=== PATIENT | male | born 1945 | race Two or more races ===

== ENCOUNTER 2021-05-28 19:55 | Inpatient (IN) | payer MEDICARE ==
[~2021-05-28] VITALS: Ht 175.3 cm; Wt 61.7 kg
--- NOTE | 2021-05-28 20:13 | NUR ---
[id number]. GEN WEAKNESS & LOW O2 SAT 85% ON RA. COVID POSITIVE X 2 WEEKS. PT A/OX3. ON O2 3LPM VIA N/C; SATTING AT 97%; TOLERATING WELL. CONNECTED PT TO POX AND MONITOR.
[2021-05-28] MEDS ORDERED: DEXAMETHASONE SOD PHOSPHATE 6 MG in IV D5W 50 ML IV ONE (20:30)
[2021-05-28] MEDS ORDERED: DEXAMETHASONE SOD PHOSPHATE 10 MG/ML VIAL ONE (20:35)
--- NOTE | 2021-05-28 20:37 | NUR ---
PHLEBOTOMY MANAGER AT PT'S BEDSIDE
[2021-05-28 20:49] LABS: BASOPHILS % (AUTO) 0.5 % (0.0-2.0); EOSINOPHILS % (AUTO) 0.1 % (0.0-6.0); HEMATOCRIT 39 % (39-51); HEMOGLOBIN 13.1 g/dL (13.5-17.5); LYMPHOCYTES # (AUTO) 0.4 K/uL (0.8-4.8); LYMPHOCYTES % (AUTO) 8.2 % (20.0-44.0); MEAN CORPUSCULAR HGB CONC 33 g/dl (31.0-36.0); MEAN CORPUSCULAR VOLUME 88 fL (80-96); MONOCYTES # (AUTO) 0.4 K/uL (0.1-1.30); NEUTROPHILS # (AUTO) 3.9 K/uL (1.8-8.9); NEUTROPHILS % (AUTO) 82.2 % (43.0-81.0); PLATELET COUNT (AUTO) 152 K/uL (150-450); RED BLOOD CELL COUNT(AUTO) 4.49 MIL/uL (4.5-6.0); WHITE BLOOD COUNT (AUTO) 4.8 K/uL (4.3-11.0)
[2021-05-28] MEDS ORDERED: AZITHROMYCIN 500 MG in IV D5W 250 ML IV ONE (21:00)
[2021-05-28] MEDS ORDERED: CEFTRIAXONE 1GM BAG (ER ONLY) 1 GM/50 ML PIGGYBACK IV ONE (21:00)
[2021-05-28 21:03] LABS: CARBON DIOXIDE 26 mmol/L (21-32); CHLORIDE 103 mmol/L (98-107); GLUCOSE 102 mg/dL (74-106); POTASSIUM 4.5 mmol/L (3.5-5.1); SODIUM SERUM 134 mmol/L (136-145); UREA NITROGEN, BLOOD 22 mg/dL (7-18)
[2021-05-28 21:06] LABS: CREATINE KINASE, TOTAL 39 U/L (39-308); D-DIMER 1.48 mg/L(FEU (0.17-0.50)
[2021-05-28 21:13] LABS: C-REACTIVE PROTEIN 22.9 mg/dL (0.0-0.9)
[2021-05-28 21:15] LABS: ALANINE AMINOTRANSFERASE 21 U/L (12-78); ALBUMIN 2.2 g/dL (3.4-5.0); ALKALINE PHOSPHATASE 58 U/L (46-116); ASPARTATE AMINOTRANSFERASE 29 U/L (15-37); BILIRUBIN,TOTAL 0.5 mg/dL (0.2-1.0); TOTAL PROTEIN, SERUM 5.8 g/dL (6.4-8.2)
--- NOTE | 2021-05-28 21:33 | NUR ---
[facility] HOSPITALIST ON PHONE WITH MARTY KOHLER
[2021-05-28] MEDS ORDERED: CEFTRIAXONE 1GM BAG (ER ONLY) 50 ML IV ONE (21:44)
[2021-05-28] MEDS ORDERED: AZITHROMYCIN 500 MG VIAL ONE (21:44)
--- NOTE | 2021-05-28 21:45 | NUR ---
PT TAKEN TO CT VIA [facility]
[2021-05-28] MEDS ORDERED: IV NS 0.9% 1,000 ML IV PRN (22:00)
[2021-05-28] MEDS ORDERED: MORPHINE SULFATE INJ 2 MG/ML DISP.SYRIN IV PRN (22:00)
[2021-05-28] MEDS ORDERED: LABETALOL 20 MG/4 ML VIAL IV PRN (22:00)
[2021-05-28] MEDS ORDERED: ONDANSETRON HCL/PF 4 MG/2 ML VIAL IVP PRN (22:00)
[2021-05-28] MEDS ORDERED: ACETAMINOPHEN 325 MG TABLET PO PRN (22:00)
--- NOTE | 2021-05-28 22:12 | NUR ---
COVID ANTIGEN AND PCR SWAB COLLECTED AND SENT TO LAB RT AT PT'S BEDSIDE FOR ABG
--- NOTE | 2021-05-28 22:29 | NUR ---
PT SEEN BY CURT KOHLER
--- NOTE | 2021-05-28 22:30 | NUR ---
ABG RESULT REPORTED TO CURT KOHLER WITH NO NEW ORDERS
[2021-05-28 22:57] LABS: ABG BASE EXCESS -1.6 mmol/L; ABG PCO2 29.3 mmHg (35.0-45.0); ABG PH 7.473 (7.350-7.450); ABG PO2 74.9 mmHg (75.0-100.0); COHb 0.3 % (0.5-1.5); MetHb 0.3 % (0.0-1.5); O2Hb 94.7 % (94.0-97.0); SITE, ABG Right Radial; VENT MODE, BG 3L NC 32%
--- NOTE | 2021-05-28 23:18 | NUR ---
REPORT GIVEN TO JASMINE VERGARA FOR RICK
[2021-05-28 23:42] LABS: THYROID STIMULATING HORMONE 1.366 uIU/mL (0.358-3.74)
[2021-05-29] MEDS ORDERED: CEFEPIME 2 GM in IV D5W 100 ML IV ONE ×2
--- NOTE | 2021-05-29 00:55 | NUR ---
MRSA SWAB COLLECTED VIA NARE AND SENT TO LAB
--- NOTE | 2021-05-29 00:58 | NUR ---
PT TRANSFERRING TO [facility]-2 VIA ACLS PROTOCOL. VSS. ALL BELONGINGS WITH PT.
[2021-05-29 01:00] VITALS: BP 119/80
[2021-05-29] MEDS ORDERED: CEFEPIME 1 GM VIAL ONE (02:52)
[2021-05-29] MEDS: ENOXAPARIN SODIUM 40 MG/0.4 ML DISP.SYRIN SQ SCH ×2 (02:53→20:17)
--- NOTE | 2021-05-29 03:00 | NUR ---
Patient arrived to unit at 0100. A&Ox1-2, forgets where he is but then remembers. However, pt. is oriented to self and can remember nurse's name. Anxious upon arrival d/t new environment/ not fully understanding care (tele monitor, documenting skin issues) but stable. Initial VS 119/80, O2 sat 94%, HR 63, temp 97.5, RR 19. Patient pupils ewual and reactive to light. Can move extremities evenly. Has swollen area to R jaw and R eye, pt. PMH includes non-hodgkins lymphoma. Lung sounds have fine crackles in bases. heart rate and rhythm regular -telemonitor applied promptly. Abdomen, soft, non-tender, and non-distended. Patient oriented to call light, bed control, unit. Discussed with contact Tejal that patient is full code.
[2021-05-29 04:00] VITALS: BP 121/81
--- NOTE | 2021-05-29 06:37 | NUR ---
Patient has been more calm since admission, A&Ox1. Patient has been very thankful for help from staff. NS infusing at 75cc/hr to RAC #20G IV. No signs of distress, no SOB, resting comfortably in bed at this time. SB on monitor at 50 with occasional PVCs.
[2021-05-29 06:57] LABS: BASOPHILS % (AUTO) 0.1 % (0.0-2.0); HEMATOCRIT 37 % (39-51); HEMOGLOBIN 12.3 g/dL (13.5-17.5); LYMPHOCYTES # (AUTO) 0.3 K/uL (0.8-4.8); MEAN CORPUSCULAR HGB CONC 34 g/dl (31.0-36.0); MEAN CORPUSCULAR VOLUME 87 fL (80-96); MONOCYTES # (AUTO) 0.1 K/uL (0.1-1.30); MONOCYTES % (AUTO) 2.8 % (2.0-12.0); NEUTROPHILS # (AUTO) 1.9 K/uL (1.8-8.9); NEUTROPHILS % (AUTO) 85.1 % (43.0-81.0); PLATELET COUNT (AUTO) 142 K/uL (150-450); RED BLOOD CELL COUNT(AUTO) 4.19 MIL/uL (4.5-6.0); WHITE BLOOD COUNT (AUTO) 2.3 K/uL (4.3-11.0)
[2021-05-29 07:29] LABS: ALBUMIN 1.9 g/dL (3.4-5.0); BILIRUBIN,TOTAL 0.3 mg/dL (0.2-1.0); CALCIUM, SERUM 7.7 mg/dL (8.5-10.1); MAGNESIUM 1.9 mg/dL (1.8-2.4); PHOSPHORUS 3.4 mg/dL (2.5-4.9); TOTAL PROTEIN, SERUM 5.3 g/dL (6.4-8.2)
--- NOTE | 2021-05-29 07:30 | NUR ---
RN NOTES PT RECEIVED IN BED AWAKE, A/O X1, ON NC 4L AND TOLERATING WELL. VERBALLY RESPONSIVE AND ABLE TO MAKE HIS NEED KNOWN, NO SOB OR DISTRESS NOTED AT THIS TIME. IV ACCESS ON RAC#20G RUNNING NS 75CC/HR AND NO INFILTRATION NOTED. PT AMBULATORY TO RESTROOM WITH ASSISTANCE. ALL SAFETY MEASURES IN PLACE. BED IN LOW POSITION AND LOCKED. BED ALARM ON. SIDE RAILS UP X3. CALL LIGHT WITHIN REACH WILL RICK
[2021-05-29 08:00] VITALS: BP 118/62
[2021-05-29] MEDS: DEXAMETHASONE 1 MG TABLET PO SCH (08:39)
[2021-05-29 12:00] VITALS: BP 107/57
[2021-05-29] MEDS: CEFEPIME 2 GM in IV D5W 100 ML IV SCH (13:19)
[2021-05-29 16:00] VITALS: BP 140/83
--- NOTE | 2021-05-29 18:42 | NUR ---
RN NOTES PT REMAIN IN BED AWAKE, A/O X2, ON NC 4L AND TOLERATING WELL. VERBALLY RESPONSIVE AND ABLE TO MAKE HIS NEED KNOWN, NO SOB OR DISTRESS NOTED AT THIS TIME. IV ACCESS ON RAC#20G RUNNING NS 75CC/HR AND NO INFILTRATION NOTED. PT AMBULATORY TO RESTROOM WITH ASSISTANCE. ALL SAFETY MEASURES IN PLACE. BED IN LOW POSITION AND LOCKED. BED ALARM ON. SIDE RAILS UP X3. CALL LIGHT WITHIN REACH WILL ENDORSE RICK TO NOC SHIFT
--- NOTE | 2021-05-29 19:15 | NUR ---
RN OPENING NOTES RECEIVED PT IN BED, A/O X 1, RESPIRATORY EVEN AND UNLABORED, NO SOB NOTED, NO S/S OF DISTRESS NOTED . PATIENT ON NASAL CANULA @ 4 LPM. PATIENT NOTED WITH RAC #20, PATENT, INTACT AND FLUSHED WITH NS, RUNNING WITH NS 1L @ 75 ML/HR. ALL SAFETY MEASURES PROVIDED. BED IN LOWEST POSITION, LOCKED, BED ALARM ARMED. CALL LIGHT WITHIN REACH. WILL CONTINUE TO MONITOR.
[2021-05-29 20:00] VITALS: BP 130/79
[2021-05-30] MEDS: CEFEPIME 2 GM in IV D5W 100 ML IV SCH ×2 (01:36→14:15)
[2021-05-30 04:00] VITALS: BP 127/68
[2021-05-30 06:59] LABS: CALCIUM, SERUM 8.5 mg/dL (8.5-10.1); CREATININE 0.9 mg/dL (0.6-1.3); MAGNESIUM 2.4 mg/dL (1.8-2.4); POTASSIUM 4.2 mmol/L (3.5-5.1)
--- NOTE | 2021-05-30 07:06 | NUR ---
RN CLOSING NOTES PATIENT REMAIN STABLE THROUGH OUT THE SHIFT, RESPIRATORY EVEN AND UNLABORED, NO SOB NOTED, NO S/S OF DISTRESS NOTED . ALL DUE MEDS GIVEN ORDERED. ALL SAFETY MEASURES PROVIDED. BED IN LOWEST POSITION, LOCKED, BED ALARM ARMED. CALL LIGHT WITHIN REACH
[2021-05-30 07:50] LABS: HEMATOCRIT 38 % (39-51); HEMOGLOBIN 12.5 g/dL (13.5-17.5); LYMPHOCYTES # (AUTO) 0.3 K/uL (0.8-4.8); LYMPHOCYTES % (AUTO) 4.4 % (20.0-44.0); MEAN CORPUSCULAR HGB CONC 33 g/dl (31.0-36.0); MEAN CORPUSCULAR VOLUME 88 fL (80-96); MONOCYTES # (AUTO) 0.3 K/uL (0.1-1.30); MONOCYTES % (AUTO) 4.7 % (2.0-12.0); NEUTROPHILS # (AUTO) 6.8 K/uL (1.8-8.9); NEUTROPHILS % (AUTO) 90.9 % (43.0-81.0); PLATELET COUNT (AUTO) 147 K/uL (150-450); RED BLOOD CELL COUNT(AUTO) 4.34 MIL/uL (4.5-6.0); WHITE BLOOD COUNT (AUTO) 7.5 K/uL (4.3-11.0)
[2021-05-30] MEDS: DEXAMETHASONE 1 MG TABLET PO SCH (09:51)
[2021-05-30 12:00] VITALS: BP 142/84
--- NOTE | 2021-05-30 19:15 | NUR ---
RN OPENING NOTES RECEIVED PT IN BED, A/O X 1, RESPIRATORY EVEN AND UNLABORED, NO SOB NOTED, NO S/S OF DISTRESS NOTED . PATIENT ON NASAL CANULA @ 4 LPM. PATIENT NOTED WITH LEFT FOREARM #20, PATENT, INTACT AND FLUSHED WITH NS. ALL SAFETY MEASURES PROVIDED. BED IN LOWEST POSITION, LOCKED, BED ALARM ARMED. CALL LIGHT WITHIN REACH. WILL CONTINUE TO MONITOR.
--- NOTE | 2021-05-30 19:33 | NUR ---
RN CLOSING NOTES PATIENT REMAINED STABLE THROUGH OUT THE SHIFT, NO SOB NOTED, NO S/S OF DISTRESS NOTED . ALL DUE MEDS GIVEN. ALL SAFETY MEASURES IN PLACE. BED IN LOWEST POSITION, LOCKED, BED ALARM ARMED. CALL LIGHT WITHIN REACH. WILL ENDORSE TO NEXT SHIFT.
[2021-05-30 20:00] VITALS: BP 143/80
[2021-05-30] MEDS: ENOXAPARIN SODIUM 40 MG/0.4 ML DISP.SYRIN SQ SCH (22:05)
[2021-05-31] MEDS: CEFEPIME 2 GM in IV D5W 100 ML IV SCH ×2 (01:33→14:23)
[2021-05-31 04:00] VITALS: BP 132/70
--- NOTE | 2021-05-31 05:07 | NUR ---
RN notes In bed resting comfortably with no distress noted. Breathing even and unlabored. On room air, tolerating well. No complaint of pain or discomfort. Bilateral wrist restraints in place, removed every two hours for hygiene, repositioning and circulation. Kept clean and dry. Will endorse to next shift for continuity of care.
[2021-05-31 06:58] LABS: HEMATOCRIT 36 % (39-51); LYMPHOCYTES # (AUTO) 0.3 K/uL (0.8-4.8); MEAN CORPUSCULAR HGB CONC 33 g/dl (31.0-36.0); MEAN CORPUSCULAR VOLUME 87 fL (80-96); MONOCYTES # (AUTO) 0.5 K/uL (0.1-1.30); MONOCYTES % (AUTO) 5.6 % (2.0-12.0); NEUTROPHILS # (AUTO) 8.6 K/uL (1.8-8.9); NEUTROPHILS % (AUTO) 91.4 % (43.0-81.0); PLATELET COUNT (AUTO) 126 K/uL (150-450); RED BLOOD CELL COUNT(AUTO) 4.17 MIL/uL (4.5-6.0); WHITE BLOOD COUNT (AUTO) 9.4 K/uL (4.3-11.0)
[2021-05-31 07:03] LABS: CALCIUM, SERUM 8.1 mg/dL (8.5-10.1); MAGNESIUM 2.3 mg/dL (1.8-2.4); POTASSIUM 4.9 mmol/L (3.5-5.1)
--- NOTE | 2021-05-31 07:16 | NUR ---
RN OPENING NOTE- PT IN BED, A/O X 1, RESPIRATIONS EVEN AND NON-LABORED, NO SOB NOTED, NO S/S OF DISTRESS NOTED . PATIENT ON NASAL CANULA @ 4 LPM. PATIENT NOTED WITH LEFT FOREARM #20. PT W SOFT WRIST RESTRAINTS ATTEMPTING TO GET OOB ON OWN / FALL RISK. ALL SAFETY MEASURES PROVIDED. BED IN LOWEST POSITION, LOCKED, BED ALARM ARMED. CALL LIGHT WITHIN REACH. WILL CONTINUE TO MONITOR.
[2021-05-31] MEDS: DEXAMETHASONE 1 MG TABLET PO SCH (09:04)
[2021-05-31 12:00] VITALS: BP 140/80
[2021-05-31] MEDS: LOSARTAN POTASSIUM 25 MG TABLET PO SCH (14:42)
--- NOTE | 2021-05-31 18:29 | NUR ---
RN CLOSING NOTE-PT IN BED, ASLEEP/DOZING THOUGH AWAKENS EASILY. A/O X 1, RESPIRATIONS EVEN AND NON-LABORED, NO SOB NOTED, NO S/S OF DISTRESS NOTED . PATIENT ON NASAL CANULA @ 4 LPM. PATIENT NOTED WITH LEFT FOREARM #20. PT W SOFT WRIST RESTRAINTS ATTEMPTING TO GET OOB ON OWN / FALL RISK. ALL SAFETY MEASURES PROVIDED. BED IN LOWEST POSITION, LOCKED, BED ALARM ARMED. CALL LIGHT WITHIN REACH. WILL CONTINUE TO MONITOR. FOR COVID TEST IN AM// AUG[facility] DC TOMORROW
[2021-05-31 20:00] VITALS: BP 148/82
[2021-05-31] MEDS: ENOXAPARIN SODIUM 40 MG/0.4 ML DISP.SYRIN SQ SCH (21:30)
[2021-06-01] MEDS: CEFEPIME 2 GM in IV D5W 100 ML IV SCH ×2 (03:37→13:18)
[2021-06-01 04:00] VITALS: BP 150/86
--- NOTE | 2021-06-01 06:39 | NUR ---
RN notes Alert with confusion. In bed resting comfortably with no distress noted. On 4lpm O2 via nasal cannula tolerating well. No physical manifestation of pain or discomfort. No significant change of condition. Vital signs wnl. For DC to ARU once covid 19 antigen result is negative. Kept clean and dry. Will endorse to next shift for continuity of care.
--- NOTE | 2021-06-01 07:22 | NUR ---
RN OPENING NOTES PT IN BED, A/O X 1, RESPIRATIONS EVEN AND NON-LABORED, NO SOB NOTED, NO S/S OF DISTRESS NOTED . PATIENT ON NASAL CANULA @ 4 LPM. PATIENT NOTED WITH LEFT FOREARM #20. PT W SOFT WRIST RESTRAINTS ATTEMPTING TO GET OOB ON OWN / FALL RISK. ALL SAFETY MEASURES PROVIDED. BED IN LOWEST POSITION, LOCKED, BED ALARM ARMED. CALL LIGHT WITHIN REACH. WILL CONTINUE TO MONITOR.
[2021-06-01] MEDS: LOSARTAN POTASSIUM 25 MG TABLET PO SCH (09:00)
[2021-06-01] MEDS: DEXAMETHASONE 1 MG TABLET PO SCH (09:33)
[2021-06-01 12:00] VITALS: BP 109/76
[2021-06-01] MEDS ORDERED: DEXA1TAB2 PO (14:36)
[2021-06-01] MEDS ORDERED: LEVO500T90 PO (14:36)
--- NOTE | 2021-06-01 18:26 | NUR ---
RN CLOSING NOTES PT IN BED, ASLEEP/DOZING THOUGH AWAKENS EASILY. A/O X 1, RESPIRATIONS EVEN AND NON-LABORED, NO SOB NOTED, NO S/S OF DISTRESS NOTED . PATIENT ON NASAL CANULA @ 4 LPM. PATIENT NOTED WITH LEFT FOREARM #20. PT W SOFT WRIST RESTRAINTS ATTEMPTING TO GET OOB ON OWN / FALL RISK. PATIENT IS DISCHARGED AND AWAITING PICK-UP BY FAMILY. ALL SAFETY MEASURES PROVIDED. BED IN LOWEST POSITION, LOCKED, BED ALARM ARMED. CALL LIGHT WITHIN REACH. WILL ENDORSE TO HUMANITIES DEPARTMENT CHAIR NURSE FOR RICK.
[2021-06-01 20:00] VITALS: BP 120/69
--- NOTE | 2021-06-01 20:00 | NUR ---
RN OPENING NOTE RECEIVED PATIENT AWAKE, ALERT/ORIENTED X 1, DIFFICULT TO UNDERSTAND PATIENT. PT STABLE ON 4 LPM OF OXYGEN VIA NC, NO S/S OF DISTRESS OR SOB NOTED, BREATHING EVEN AND UNLABORED. PATIENT REMOVED OXYGEN AND DESATTED TO LOW 80'S SO RESTRAINTS WERE PLACED BACK ON PATIENT, OXYGEN RETURNED BACK TO 94% ONCE OXYGEN WAS PLACED BACK. IV ACCESS ON BILATERAL HANDS #20G INSERTED, INTACT AND FLUSHING WELL. SAFETY MEASURES IN PLACE: CALL LIGHT WITHIN REACH, SIDE RAILS UP X 3, BED LOCKED IN LOW POSITION, BED ALARM ON. WILL CONTINUE TO MONITOR PATIENT
[2021-06-01] MEDS: ENOXAPARIN SODIUM 40 MG/0.4 ML DISP.SYRIN SQ SCH (21:39)
[2021-06-02] MEDS: CEFEPIME 2 GM in IV D5W 100 ML IV SCH ×2 (02:12→13:07)
[2021-06-02 04:00] VITALS: BP 128/72
--- NOTE | 2021-06-02 07:00 | NUR ---
RN CLOSING NOTE PATIENT SLEEPING IN BED, BILATERAL SOFT WRIST RESTRAINTS IN PLACE. PT STABLE ON 4 LPM OF OXYGEN VIA NC, NO S/S OF DISTRESS OR SOB NOTED, BREATHING EVEN AND UNLABORED. MEDICATIONS GIVEN ORDERED, PT NEEDS MET THROUGHOUT SHIFT. SAFETY MEASURES IN PLACE: CALL LIGHT WITHIN REACH, SIDE RAILS UP X 2, BED LOCKED IN LOW POSITION, HOB ELEVATED, BED ALARM ON. ENDORSED TO DAY SHIFT NURSE FOR CONTINUITY OF CARE
--- NOTE | 2021-06-02 07:13 | NUR ---
RN OPENING NOTE RECEIVED PATIENT AWAKE, ALERT/ORIENTED X 1, DIFFICULT TO UNDERSTAND PATIENT. PT STABLE ON 4 LPM OF OXYGEN VIA NC, NO S/S OF DISTRESS OR SOB NOTED, BREATHING EVEN AND UNLABORED. PATIENT HAS RESTRAINTS IN PLACE, WILL DO ROUTINE CHECKS AND MONITORING THROUGHOUT SHIFT. IV ACCESS ON BILATERAL HANDS #20G INSERTED, INTACT AND FLUSHING WELL. SAFETY MEASURES IN PLACE: CALL LIGHT WITHIN REACH, SIDE RAILS UP X 3, BED LOCKED IN LOW POSITION, BED ALARM ON. WILL CONTINUE TO MONITOR
[2021-06-02] MEDS: DEXAMETHASONE 1 MG TABLET PO SCH (08:17)
[2021-06-02] MEDS: LOSARTAN POTASSIUM 25 MG TABLET PO SCH (08:18)
[2021-06-02 09:00] VITALS: BP 121/80
--- NOTE | 2021-06-02 10:48 | NUR ---
suctioned for small amt secretions obtained will continue to assess and evaluate
[2021-06-02 11:36] LABS: CALCIUM, SERUM 8.6 mg/dL (8.5-10.1); POTASSIUM 4.1 mmol/L (3.5-5.1)
[2021-06-02 11:43] LABS: BASOPHILS % (AUTO) 0.1 % (0.0-2.0); HEMATOCRIT 42 % (39-51); HEMOGLOBIN 13.7 g/dL (13.5-17.5); LYMPHOCYTES # (AUTO) 0.2 K/uL (0.8-4.8); LYMPHOCYTES % (AUTO) 2.9 % (20.0-44.0); MEAN CORPUSCULAR HGB CONC 33 g/dl (31.0-36.0); MEAN CORPUSCULAR VOLUME 86 fL (80-96); MONOCYTES # (AUTO) 0.3 K/uL (0.1-1.30); MONOCYTES % (AUTO) 4.5 % (2.0-12.0); NEUTROPHILS # (AUTO) 6.2 K/uL (1.8-8.9); NEUTROPHILS % (AUTO) 92.5 % (43.0-81.0); PLATELET COUNT (AUTO) 119 K/uL (150-450); RED BLOOD CELL COUNT(AUTO) 4.83 MIL/uL (4.5-6.0); WHITE BLOOD COUNT (AUTO) 6.7 K/uL (4.3-11.0)
[2021-06-02 12:01] VITALS: BP 121/80
--- NOTE | 2021-06-02 18:24 | NUR ---
RN CLOSING NOTE PATIENT AWAKE, ALERT/ORIENTED X 1, DIFFICULT TO UNDERSTAND PATIENT. PT STABLE ON 4 LPM OF OXYGEN VIA NC, NO S/S OF DISTRESS OR SOB NOTED, BREATHING EVEN AND UNLABORED. PATIENT HAS RESTRAINTS IN PLACE, O ROUTINE CHECKS AND MONITORING DONE THROUGHOUT SHIFT. GIVEN HYDRATION AND ORAL INTAKE TOLERATED. IV ACCESS ON BILATERAL HANDS #20G INSERTED, INTACT AND FLUSHING WELL. ALL MEDICATIONS GIVEN ORDERED. TURNED AND REPOSITIONED PER PROTOCOL. SAFETY MEASURES IN PLACE: CALL LIGHT WITHIN REACH, SIDE RAILS UP X 3, BED LOCKED IN LOW POSITION, BED ALARM ON. WILL ENDORSE TO ONCOMING SHIFT.
[2021-06-02 20:00] VITALS: BP 126/62
[2021-06-02] MEDS: ENOXAPARIN SODIUM 40 MG/0.4 ML DISP.SYRIN SQ SCH (21:21)
--- NOTE | 2021-06-02 23:29 | NUR ---
RN NOTE ARACELY , CALLED TO FOLLOW UP TOLD HER THAT TH HR IS LOW BUT THE REST OF THE VITALS ARE WITHIN RANGE. SHE MENTIONED SHE SPOKE WITH THE DOCTOR ABOUT [facility].
[2021-06-03] VITALS: BP 118/60
[2021-06-03] MEDS: CEFEPIME 2 GM in IV D5W 100 ML IV SCH ×2 (01:52→13:13)
[2021-06-03 04:00] VITALS: BP 136/74
--- NOTE | 2021-06-03 06:20 | NUR ---
RN CLOSING NOTES, PATIENT REMAINS STABLE THROUGHOUT THE NIGHT, ALL MEDS GIVEN AND ALL KEPT PATIENT DRY AND CLEAN. RESTRAINTS RELEASED AND SITE REASSESSED VERY TWO HOURS. WILL ENDORSE PLAN OF CARE TO AM NURSE.
[2021-06-03 06:25] LABS: BASOPHILS % (AUTO) 0.1 % (0.0-2.0); HEMATOCRIT 40 % (39-51); HEMOGLOBIN 13.2 g/dL (13.5-17.5); LYMPHOCYTES # (AUTO) 0.3 K/uL (0.8-4.8); LYMPHOCYTES % (AUTO) 4.4 % (20.0-44.0); MEAN CORPUSCULAR HGB CONC 33 g/dl (31.0-36.0); MEAN CORPUSCULAR VOLUME 86 fL (80-96); MONOCYTES # (AUTO) 0.4 K/uL (0.1-1.30); MONOCYTES % (AUTO) 5.8 % (2.0-12.0); NEUTROPHILS # (AUTO) 5.5 K/uL (1.8-8.9); NEUTROPHILS % (AUTO) 89.7 % (43.0-81.0); PLATELET COUNT (AUTO) 151 K/uL (150-450); RED BLOOD CELL COUNT(AUTO) 4.62 MIL/uL (4.5-6.0); WHITE BLOOD COUNT (AUTO) 6.1 K/uL (4.3-11.0)
[2021-06-03 07:52] LABS: CALCIUM, SERUM 8.3 mg/dL (8.5-10.1); MAGNESIUM 2.3 mg/dL (1.8-2.4); PHOSPHORUS 2.9 mg/dL (2.5-4.9); POTASSIUM 3.9 mmol/L (3.5-5.1)
--- NOTE | 2021-06-03 07:53 | NUR ---
MS RN NOTE RECEIVED PATIENT AWAKE, ALERT/ORIENTED X ,WITH CONFUSION PT STABLE ON 4 LPM OF OXYGEN VIA NC, NO S/S OF DISTRESS OR SOB NOTED, BREATHING EVEN AND UNLABORED. . IV ACCESS ON BILATERAL HANDS #20G INTACT AND FLUSHING WELL. SAFETY MEASURES IN PLACE: CALL LIGHT WITHIN REACH, SIDE RAILS UP X 3, BED LOCKED IN LOW POSITION, BED ALARM ON. WILL CONTINUE TO MONITOR CHEST X RAY DONE
[2021-06-03 08:00] VITALS: BP 140/76
[2021-06-03] MEDS ORDERED: DEXAMETHASONE 4 MG TABLET PO SCH (09:00)
--- NOTE | 2021-06-03 09:23 | NUR ---
ms rn note Decadron 6mg po given at 0817 as ordered
[2021-06-03] MEDS: LOSARTAN POTASSIUM 25 MG TABLET PO SCH (09:33)
--- NOTE | 2021-06-03 10:27 | NUR ---
ms rn note pt at bedside able to stand up with max assistance
[2021-06-03 12:00] VITALS: BP_SYST 101; BP_SYST 140; BP_DIAS 42; BP_DIAS 76
--- NOTE | 2021-06-03 12:30 | NUR ---
ms rn note has poor appetite, ate 15% of lunch
[2021-06-03 12:58] VITALS: BP 140/76
--- NOTE | 2021-06-03 13:56 | NUR ---
telemetry monitor note charge nurse called to snf , report given, also charge nurse called to daughter ,informed her that patient will be transfer to snf
--- NOTE | 2021-06-03 14:39 | NUR ---
MS RN NOTE TURN REPOSITION DONE ,KEEP CLEAN DRY
--- NOTE | 2021-06-03 15:14 | NUR ---
JUSTICE PROFESSOR NOTE AMBULANCE ARRIVED REPORT GIVEN [facility] REMOVED , NO BLEEDING NOTED DRY DRESSING APPLIED
--- NOTE | 2021-06-03 15:29 | NUR ---
ms rn note ambulance arrived ,report hoven ,all belonging taken, went to snf with stable condition with o2 on on 4l nc, saturation 91% at this time bp 101/45 hr 45
== END 2021-06-03 15:20 | DRG 871 ==
LOC: ER 19:59 → TELE1 23:13 → MEDSG1 05-29 15:37
PROVIDERS: ADMIT Internal Medicine; ATTEND Nurse Practitioner Acute Care
DX: A41.89 Other specified sepsis (principal); U07.1 COVID-19; J96.01 Acute respiratory failure with hypoxia; J12.82 Pneumonia due to coronavirus disease 2019; J15.9 Unspecified bacterial pneumonia; G92.8 Other toxic encephalopathy; E43 Unspecified severe protein-calorie malnutrition; I25.10 Atherosclerotic heart disease of native coronary artery without angina pectoris; I10 Essential (primary) hypertension; F03.90 Unspecified dementia, unspecified severity, without behavioral disturbance, psychotic disturbance, mood disturbance, and anxiety; Z95.1 Presence of aortocoronary bypass graft; N39.43 Post-void dribbling; I89.8 Other specified noninfective disorders of lymphatic vessels and lymph nodes; E88.09 Other disorders of plasma-protein metabolism, not elsewhere classified; J84.10 Pulmonary fibrosis, unspecified; I25.5 Ischemic cardiomyopathy; Z85.9 Personal history of malignant neoplasm, unspecified
CPT/HCPCS: 36415; 36600; 70450-TC; 71045-TC; 71250-TC; 80048-TC; 80053-TC; 82140-TC; 82550-TC; 82803-TC; 83605-TC; 83615-TC; 83735-TC; 83880; 84100-TC; 84443-TC; 84484-TC; 85025-TC; 85378-TC; 85730-TC; 86140-TC; 87040-TC; 87081-TC; 93307-TC; 97110-TC; 97116-TC; 97530-TC; G0378; J0456; J0692; J0696; J1100; J1650; J7030; J7040; J7050; J7060; J8540; U0003